=== PATIENT | male | born 1980 | race Hispanic/Latino ===

== ENCOUNTER 2019-08-08 07:35 | Day surgery (SDC) | payer OTHER ==
[2019-08-07 11:30] VITALS: BMI 26.6
[2019-08-08] MEDS ORDERED: Oxymetazoline HCl 0.05% ( 15 ML ) ONE (09:07)
[2019-08-08] MEDS ORDERED: Dexamethasone 20 MG/5 ML VIAL ONE (09:52)
[2019-08-08] MEDS ORDERED: Ondansetron PF 4 MG/2 ML Vial ONE (09:52)
[2019-08-08] MEDS ORDERED: Lidocaine 1% PF 5 ML VIAL ONE (09:52)
[2019-08-08] MEDS ORDERED: Succinylcholine Chloride 20 MG/ML 10 ml SYRINGE FS ONE (09:52)
[2019-08-08] MEDS ORDERED: PROPOFOL 200 MG/20 ML VIAL ONE (09:52)
[2019-08-08] MEDS ORDERED: Lidocaine 1% w/Epinephrine 1:100K 20 ML VIAL ONE (12:07)
[2019-08-08] MEDS ORDERED: Bacitracin Zinc Ointment 30 gm TUBE ONE (12:07)
[2019-08-08] MEDS ORDERED: Fentanyl 100 MCG/2 ML VIAL ONE (13:02)
[2019-08-08] MEDS ORDERED: Hydrocodone-Acetamin 15 ML UDCUP ONE (15:24)
--- NOTE | 2019-08-08 17:25 | EKG ---
Test Reason : PREOP Blood Pressure : / mmHG Vent. Rate : 078 BPM Atrial Rate : 078 BPM P-R Int : 158 ms QRS Dur : 106 ms QT Int : 384 ms P-R-T Axes : 070 018 024 degrees QTc Int : 437 ms Normal sinus rhythm Normal ECG When compared with ECG of 13-MAR-2016 19:19, No significant change was found Confirmed by DR. Alice WEBBER ([id number]) on 08/08/2019 5:25:05 PM Referred By: FREDO Confirmed By:DR. Alice WEBBER
--- NOTE | 2019-08-09 08:14 | OP ---
DATE OF PROCEDURE: 08/08/2019 PREOPERATIVE DIAGNOSES: Profound septal deformity, hypertrophic inferior turbinates, and deviated septum. POSTOPERATIVE DIAGNOSES: Profound septal deformity, hypertrophic inferior turbinates, and deviated septum. PROCEDURES PERFORMED: Bilateral nasal endoscopy with submucosal resection of inferior turbinates and septoplasty. DESCRIPTION OF PROCEDURE: BILATERAL NASAL ENDOSCOPY WITH SUBMUCOSAL RESECTION OF INFERIOR TURBINATES: After consent was obtained, the patient was identified, brought to the operating room, and placed on the operating room table in the supine position. Consent was obtained, notifying the patient of the possibility of additional infections, bleeding, brain injury, and eye/orbital injury. The patient was placed on the operating room table, and general endotracheal anesthesia and intravenous access was obtained. The patient was then positioned, prepped and draped for endoscopic sinus surgery. Nasal preparation included trimming nasal vestibular hairs and spraying in topical Afrin. We then placed Afrin topical solution on nasal pledgets and strategically located them intranasally. The perinasal mucosa was injected with 1% lidocaine with 1:100,000 epinephrine in the submucoperichondrial plane of the septum, lateral nasal wall, and anterior to the uncinate. The patient was then prepped and draped in a sterile fashion and positioned for endoscopic sinus surgery. With the 0-degree endoscope, the patient underwent systematic nasal endoscopy. There were no suspicious internasal masses or lesions identified. We then focused our attention to the osteomeatal complex region under the middle turbinate. The inferior turbinates were visualized with a 0 degree endoscope and outfractured with a [place] elevator. The inferior medial aspect was cauterized with the electrocautery. Hemostasis was obtained . After adequate airway was established, we turned our attention to the contralateral side and used a similar procedure. Again, a [place] elevator was used to outfracture inferior turbinates under endoscopic visualization. With a suction cautery, the free inferior medial aspect was cauterized under direct visualization along the length of the inferior turbinate. At this point, we then turned our attention to the contralateral side and proceeded with endoscopic sinus surgery. At the completion of the case, Rice keel splints were placed in the ethmoid cavities after the ethmoidectomy. There were no complications. The patient tolerated the procedure well and was discharged to the recovery room in stable condition prior to return to the preoperative day stay with ultimate discharge home. Prescriptions for pain medication and antibiotics were provided. The patient received intramuscular Depo-Medrol during the case. SEPTOPLASTY: After local anesthesia was infiltrated into the submucoperichondrial plane, a standard Tony incision was made with a #15 blade down to the level of the septal cartilage. The caudal elevator was used to elevate the mucoperichondrium from the underlying cartilage. We then proceeded beyond the bony cartilaginous junction and elevated the bony periosteum as well. Great attention was paid to the spur to prevent rent formation in the septal flap. A transcartilaginous incision was then made, while preserving an adequate dorsal and caudal cartilaginous strut for tip support. The deformed cartilage was removed and disarticulated from the bony cartilaginous junction and maxillary crest. This was placed in saline and would later be crushed and returned to the mucoperichondrial envelope. We then elevated the contralateral periosteum from the bony cartilaginous region and removed the deformed portions of the bone and bony spurs. The cartilage was then crushed and placed back into the mucoperichondrial envelope and the mucosa was re-approximated with a quilting stitch composed of rapidly absorbent gut suture. The Tony incision was also closed with interrupted gut suture. At the completion of the case, [place] splints were placed and suture secured to the caudal septum. Job ID: [id number]
== END 2019-08-08 14:10 | disposition home or self-care (01) ==
LOC: SDC 07:35
PROVIDERS: ATTEND Specialist
PROC: 09SM0ZZ Reposition Nasal Septum, Open Approach (ICD-10-PCS; principal; 2019-08-08)
PROC: 09TL8ZZ Resection of Nasal Turbinate, Via Natural or Artificial Opening Endoscopic (ICD-10-PCS; principal; 2019-08-08)
DX: J34.2 Deviated nasal septum (principal); J34.3 Hypertrophy of nasal turbinates; F17.200 Nicotine dependence, unspecified, uncomplicated; J34.89 Other specified disorders of nose and nasal sinuses; J30.9 Allergic rhinitis, unspecified; Z79.899 Other long term (current) drug therapy
CPT/HCPCS: 93005; 93010; J1100; J2001; J2405; J2704; J3010